=== PATIENT | female | born 1980 | race Two or more races ===

== ENCOUNTER 2025-07-13 18:18 | Emergency (ER) | payer BC, OTHER ==
[~2025-07-13] VITALS: Ht 165.1 cm; Wt 86.8 kg
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
[2025-07-13] MEDS ORDERED: METH4PAK PO (20:42)
[2025-07-13] MEDS ORDERED: TIZA-142 PO (20:42)
[2025-07-13] MEDS: KETOROLAC TROMETH 60MG/2ML VIAL IM ONE (21:05)
[2025-07-13 21:07] VITALS: BP 107/61; PULSE 65; RESP 16; TEMP 98.2; O2SAT 100
== END 2025-07-13 21:07 | disposition home or self-care (01) ==
LOC: ER 18:18
DX: S13.4XXA Sprain of ligaments of cervical spine, initial encounter (principal); S66.911A Strain of unspecified muscle, fascia and tendon at wrist and hand level, right hand, initial encounter; S66.912A Strain of unspecified muscle, fascia and tendon at wrist and hand level, left hand, initial encounter; V89.2XXA Person injured in unspecified motor-vehicle accident, traffic, initial encounter; Y93.89 Activity, other specified; Y92.410 Unspecified street and highway as the place of occurrence of the external cause; Y99.8 Other external cause status
CPT/HCPCS: 72040